=== PATIENT | female | born 1990 | race Hispanic/Latino ===

== ENCOUNTER 2019-08-27 14:36 | Inpatient (IN) | payer OTHER ==
[~2019-08-27] VITALS: Ht 162.6 cm; Wt 88.0 kg
[2019-08-27] MEDS ORDERED: LACTATED RINGERS 1000ML 1,000 ML IV PRN (16:06)
[2019-08-27 16:12] VITALS: BP 128/87
[2019-08-27 16:30] LABS: HEMATOCRIT 33.4 % (36-48); MEAN CORPUSCULAR HEMOGLOBIN 27.9 pg (27.0-33.0); MEAN CORPUSCULAR HGB CONC 33.5 g/dL (32.0-36.0); MEAN CORPUSCULAR VOLUME 83.3 fL (79-99); PLATELET COUNT (AUTO) 300 K/uL (130-400); RED BLOOD CELL COUNT(AUTO) 4.01 MIL/uL (4.00-5.50); RED CELL DISTRIBUTION WIDTH 13.2 % (11.0-15.5); WHITE BLOOD COUNT (AUTO) 9.3 K/uL (4.8-10.8)
[2019-08-27] MEDS ORDERED: LACTATED RINGERS 500 ML 500 ML IV PRN (17:45)
[2019-08-27] MEDS ORDERED: ROPIVACAINE 0.2% 100ML VIAL 100 ML EP SCH (17:45)
[2019-08-27] MEDS ORDERED: NALOXONE HCL 0.4 MG/1 ML ML IV PRN (17:45)
[2019-08-27] MEDS ORDERED: EPHEDRINE SULFATE 50 MG/ML AMPULE IVP PRN (17:45)
[2019-08-27] MEDS ORDERED: OXYTOCIN-LR 20 UNITS/1000 ML 1,000 ML IV ONE (23:54)
[2019-08-28] MEDS ORDERED: OXYTOCIN 10 USP UNITS/ML 20 UNIT in LACTATED RINGERS 1000ML 1,000 ML IV SCH ×2
[2019-08-28] MEDS: AMPICILLIN 2GM+NS 100ML 100 ML IV SCH ×2 (04:29→22:15)
[2019-08-28] MEDS ORDERED: OXYTOCIN-LR 20 UNITS/1000 ML 1,000 ML IV ONE (12:47)
[2019-08-28] MEDS ORDERED: DIPH,PERTUSS(ACELL),TET VAC/PF 0.5 ML VIAL IM PRN (14:15)
[2019-08-28] MEDS ORDERED: ACETAMINOPHEN-CODEINE 300/30MG TAB PO PRN (14:15)
[2019-08-28] MEDS ORDERED: BENZOCAINE/LANOLIN/ALOE VERA 60 ML AEROSOL TP PRN (14:15)
[2019-08-28] MEDS ORDERED: LANOLIN 30GM OINTMENT TP PRN (14:15)
[2019-08-28] MEDS ORDERED: MEASLES/MUMPS/RUBELLA VACCINE, LIVE 0.5 ML/VIAL SQ PRN (14:15)
[2019-08-28] MEDS ORDERED: IBUPROFEN 600 MG TABLET PO PRN (14:15)
[2019-08-28] MEDS ORDERED: ACETAMINOPHEN 325 MG TAB PO PRN (14:15)
[2019-08-28] MEDS ORDERED: WITCH HAZEL 1 PAD TP PRN (14:15)
[2019-08-28] MEDS ORDERED: OXYTOCIN-LR 20 UNITS/1000 ML 1,000 ML IV SCH (14:15)
--- NOTE | 2019-08-28 16:35 | NUR ---
PATIENT ORIENTED TO ROOM. FUNDUS FIRM, BLEEDING SCANT. INSTRUCTED PATIENT ON USE AND DESIRED EFFECTS OF LANOLIN, DERMAPLAST SPRAY AND SITZ BATH. ADVISED PATIENT TO CALL WITH ANY NEEDS OR CONCERNS.
[2019-08-28 16:36] VITALS: BP 121/67
[2019-08-28 19:26] VITALS: BP 115/69
[2019-08-28] MEDS: DOCUSATE SODIUM 100 MG CAP PO SCH (20:36)
[2019-08-28 23:34] VITALS: BP 104/55
[2019-08-29 03:48] VITALS: BP 109/68
[2019-08-29] MEDS: AMPICILLIN 2GM+NS 100ML 100 ML IV SCH ×2 (04:15→10:15)
[2019-08-29 07:19] VITALS: BP 102/60
[2019-08-29 08:09] LABS: HEPATITIS Bs ANTIGEN SCREEN P Negative (Negative)
[2019-08-29] MEDS ORDERED: PNV1TABL17 PO (08:11)
[2019-08-29] MEDS: DOCUSATE SODIUM 100 MG CAP PO SCH (09:44)
[2019-08-29 11:27] VITALS: BP 103/51
--- NOTE | 2019-08-29 12:20 | NUR ---
DISCHARGE INSTRUCTIONS READ AND EXPLAINED TO PATIENT NO NEW PRESCRIPTIONS GIVEN. HANDOUT INFORMATION REGARDING COVID19 REVIEWED WITH PATIENT. PATIENT VOICED ALL UNDERSTANDING OF DISCHARGE INSTRUCTIONS.
[2019-08-29 16:50] VITALS: BP 101/67
--- NOTE | 2019-08-29 17:40 | NUR ---
PATIENT LEFT UNIT VIA WHEELCHAIR WITH BABY IN ARMS. PERSONAL VEHICLE USED FOR TRANSPORTATION. BABY SECURE IN CARSEAT. NO COMPLAINTS OR CONCERNS ADDRESSED FROM PATIENT ON DISCHARGE.
== END 2019-08-29 17:40 | disposition home or self-care (01) | DRG 807 ==
LOC: OBSVTOIN 14:36 → LDH 14:36 → WSH 08-28 16:35
PROVIDERS: ADMIT Specialist; ATTEND Specialist
PROC: 0W8NXZZ Division of Female Perineum, External Approach (ICD-10-PCS; principal; 2019-08-28)
PROC: 10E0XZZ Delivery of Products of Conception, External Approach (ICD-10-PCS; 2019-08-28)
PROC: 3E0234Z Introduction of Serum, Toxoid and Vaccine into Muscle, Percutaneous Approach (ICD-10-PCS; 2019-08-28)
PROC: 3E0134Z Introduction of Serum, Toxoid and Vaccine into Subcutaneous Tissue, Percutaneous Approach (ICD-10-PCS; 2019-08-28)
PROC: 3E0R3BZ Introduction of Anesthetic Agent into Spinal Canal, Percutaneous Approach (ICD-10-PCS; 2019-08-28)
PROC: 00HU33Z Insertion of Infusion Device into Spinal Canal, Percutaneous Approach (ICD-10-PCS; 2019-08-28)
PROC: 0KQM0ZZ Repair Perineum Muscle, Open Approach (ICD-10-PCS; 2019-08-28)
DX: O77.0 Labor and delivery complicated by meconium in amniotic fluid (principal); Z37.0 Single live birth; Z23 Encounter for immunization; Z3A.39 39 weeks gestation of pregnancy; O70.1 Second degree perineal laceration during delivery
CPT/HCPCS: 36415; 85027; 86592; 86850; 86900; 86901; 87340; A4314; A4606; G0378; J0290; J2590; J2795; J7120